=== PATIENT | female | born 1960 | race Caucasian/White ===

== ENCOUNTER → 2017-06-26 | Outpatient (CLI) | payer OTHER ==
[~2017-06-26] VITALS: Ht 152.4 cm; Wt 86.2 kg
[~2017-06-26] MED LIST: ACIDOPHILUS1 EAC3 PO; CARAFATE1 G PO; CYCLOBENZAPRINE10 MG PO; DICLOFENAC SODI75 MG PO; ENALAPRIL MALEA20 MG PO; ESTR0.624 PO; FIORICET 50-301 EACH PO; FIORICET 50-321 EACH PO; HYDROCHLOROTH12.5 M1 PO; HYZAAR 100-251 EACH PO; HYZAAR 100-251 UDTAB PO; LOSARTAN-HCTZ1 EACH; LOSARTAN-HCTZ1 EACH PO; LOTRISONE CREAM45 GM TOP; LOTRISONE CREAM45 GM TP; NO TOMA MEDICAMENTO; NORTUSS-EX LIQ118 ML PO; OMEPRAZOLE20 MG PO; PREMARIN0.45 MG; PROPRANOLOL HCL60 M1 PO; PROVENTIL HFA6.7 GM IH; TESSALON PERLE100 M1 PO; VOLTAREM 50 MG PO; ZANTAC150 MG PO; ZANTAC300 MG PO; ZITHROMAX TRI-500 MG PO; [UNRECOGNIZED DRUG - OTHER] PO
== END | disposition home or self-care (01) ==
LOC: PPHC 11:00
DX: L29.8 Other pruritus (principal)

== ENCOUNTER 2017-07-21 13:01 | Emergency (ER) | payer OTHER ==
[~2017-07-21] VITALS: Ht 152.4 cm; Wt 86.2 kg
== END 2017-07-21 16:27 | disposition home or self-care (01) ==
LOC: ER 13:01
DX: B34.9 Viral infection, unspecified (principal)

== ENCOUNTER 2017-07-26 12:09 | Emergency (ER) | payer OTHER ==
[~2017-07-26] VITALS: Ht 152.4 cm; Wt 90.7 kg
== END 2017-07-26 15:42 | disposition home or self-care (01) ==
LOC: ER 12:09
DX: J45.998 Other asthma (principal)

== ENCOUNTER → 2017-08-13 | Outpatient (CLI) | payer OTHER ==
[~2017-08-13] MED LIST changes: +BUTALB-ACETAMI1 EACH; +ULTRAM50 MG
== END | disposition home or self-care (01) ==
LOC: PPHC 15:42
DX: G43.809 Other migraine, not intractable, without status migrainosus (principal); Z76.0 Encounter for issue of repeat prescription

== ENCOUNTER → 2017-09-16 | Outpatient (CLI) | payer OTHER | END | disposition home or self-care (01) | LOC: PPHC 15:44 | DX: M54.5 Low back pain (principal) ==

== ENCOUNTER 2017-11-26 16:17 | Emergency (ER) | payer OTHER ==
[~2017-11-26] VITALS: Ht 152.4 cm; Wt 90.7 kg
[2017-11-27] MEDS ORDERED: XOPENEX0.63 MG/3 IH (09:42)
[2017-11-27] MEDS ORDERED: LEVAQUIN500 MG PO (09:42)
[2017-11-27] MEDS ORDERED: TUSSI PRES-B L120 M1 PO (09:42)
== END 2017-11-27 10:15 | disposition home or self-care (01) ==
LOC: ER 16:17
DX: J11.1 Influenza due to unidentified influenza virus with other respiratory manifestations (principal)

== ENCOUNTER 2018-01-06 15:50 | Outpatient (CLI) | payer OTHER ==
[~2018-01-06 15:50] MED LIST changes: +LEVAQUIN500 MG PO; +TUSSI PRES-B L120 M1 PO; +XOPENEX0.63 MG/3 IH
== END 2018-01-06 15:51 | disposition home or self-care (01) ==
LOC: LAB 15:50
DX: R04.0 Epistaxis (principal)

== ENCOUNTER 2018-01-13 17:39 | Outpatient (CLI) | payer OTHER | END 2018-01-13 17:41 | disposition home or self-care (01) | LOC: RAD 17:39 | DX: R10.84 Generalized abdominal pain (principal); M54.5 Low back pain ==

== ENCOUNTER 2018-01-14 06:08 | Outpatient (CLI) | payer OTHER | END 2018-01-14 06:17 | disposition home or self-care (01) | LOC: LAB 06:08 | DX: R10.84 Generalized abdominal pain (principal); N39.0 Urinary tract infection, site not specified ==

== ENCOUNTER 2018-01-14 10:43 | Emergency (ER) | payer OTHER ==
[~2018-01-14] VITALS: Ht 152.4 cm; Wt 92.5 kg
== END 2018-01-14 14:17 | disposition home or self-care (01) ==
LOC: ER 10:43
DX: R10.31 Right lower quadrant pain (principal)

== ENCOUNTER 2018-08-13 06:57 | Outpatient (CLI) | payer OTHER | END 2018-08-13 07:50 | disposition home or self-care (01) | LOC: LAB 06:57 | DX: E78.4 Other hyperlipidemia (principal); I10 Essential (primary) hypertension; Z00.00 Encounter for general adult medical examination without abnormal findings ==

== ENCOUNTER 2018-09-03 10:15 | Outpatient (CLI) | payer OTHER | END 2018-09-03 10:17 | disposition home or self-care (01) | LOC: MAMO-SONO 10:15 | DX: N64.4 Mastodynia (principal); Z12.31 Encounter for screening mammogram for malignant neoplasm of breast ==

== ENCOUNTER 2018-09-11 06:35 | Outpatient (CLI) | payer OTHER | END 2018-09-11 18:34 | disposition home or self-care (01) | LOC: LAB 06:35 | DX: K92.1 Melena (principal); R10.13 Epigastric pain; K64.2 Third degree hemorrhoids; R19.4 Change in bowel habit; R10.31 Right lower quadrant pain ==

== ENCOUNTER 2018-09-17 10:52 | Outpatient (CLI) | payer OTHER | END 2018-09-17 11:07 | disposition home or self-care (01) | LOC: SONOGRAMA 10:52 | DX: Z12.31 Encounter for screening mammogram for malignant neoplasm of breast (principal) ==

== ENCOUNTER 2018-09-23 06:18 | Emergency (ER) | payer OTHER ==
[~2018-09-23] VITALS: Ht 152.4 cm; Wt 90.7 kg
[2018-09-23] MEDS ORDERED: PREMARIN0.45 MG (06:40)
[2018-09-23] MEDS ORDERED: PRILOSEC10 MG (06:41)
== END 2018-09-23 11:40 | disposition home or self-care (01) ==
LOC: ER 06:18
DX: S60.222A Contusion of left hand, initial encounter (principal); W22.8XXA Striking against or struck by other objects, initial encounter; Y93.89 Activity, other specified; Y92.090 Kitchen in other non-institutional residence as the place of occurrence of the external cause; Y99.8 Other external cause status

== ENCOUNTER 2018-09-30 07:28 | Day surgery (SDC) | payer OTHER ==
[~2018-09-30 07:28] MED LIST changes: +PRILOSEC10 MG
== END 2018-09-30 09:25 | disposition home or self-care (01) ==
LOC: AMB-ENDOS 07:28
DX: D12.4 Benign neoplasm of descending colon (principal)

== ENCOUNTER 2018-10-03 12:40 | Emergency (ER) | payer OTHER ==
[~2018-10-03] VITALS: Ht 152.4 cm; Wt 90.7 kg
== END 2018-10-03 14:17 | disposition home or self-care (01) ==
LOC: ER 12:40
DX: M72.2 Plantar fascial fibromatosis (principal); M79.672 Pain in left foot

== ENCOUNTER 2018-10-06 06:22 | Emergency (ER) | payer OTHER ==
[~2018-10-06] VITALS: Ht 152.4 cm; Wt 90.7 kg
== END 2018-10-06 08:41 | disposition home or self-care (01) ==
LOC: ER 06:22
DX: M72.2 Plantar fascial fibromatosis (principal)

== ENCOUNTER 2018-10-10 08:45 | Emergency (ER) | payer OTHER ==
[~2018-10-10] VITALS: Ht 152.4 cm; Wt 90.7 kg
[2018-10-10] MEDS ORDERED: KETO10TA2 PO (09:42)
== END 2018-10-10 09:52 | disposition home or self-care (01) ==
LOC: ER 08:45
DX: S80.02XA Contusion of left knee, initial encounter (principal); W18.39XA Other fall on same level, initial encounter; Y93.89 Activity, other specified; Y92.69 Other specified industrial and construction area as the place of occurrence of the external cause; Y99.8 Other external cause status

== ENCOUNTER 2019-01-23 12:39 | Outpatient (CLI) | payer OTHER ==
[~2019-01-23 12:39] MED LIST changes: +KETO10TA2 PO
== END 2019-01-23 12:46 | disposition home or self-care (01) ==
LOC: LAB 12:39
DX: J11.1 Influenza due to unidentified influenza virus with other respiratory manifestations (principal); J11.81 Influenza due to unidentified influenza virus with encephalopathy

== ENCOUNTER 2019-02-19 07:13 | Outpatient (CLI) | payer OTHER | END 2019-02-19 07:18 | disposition home or self-care (01) | LOC: LAB 07:13 | DX: G63 Polyneuropathy in diseases classified elsewhere (principal); I73.89 Other specified peripheral vascular diseases; I87.2 Venous insufficiency (chronic) (peripheral); M54.5 Low back pain ==

== ENCOUNTER 2019-02-19 07:48 | Outpatient (CLI) | payer OTHER | END 2019-02-19 07:53 | disposition home or self-care (01) | LOC: RAD 07:48 | DX: M54.5 Low back pain (principal) ==

== ENCOUNTER 2019-05-25 16:54 | Outpatient (CLI) | payer OTHER | END 2019-05-25 17:43 | disposition home or self-care (01) | LOC: RAD 16:54 | DX: M62.830 Muscle spasm of back (principal) ==

== ENCOUNTER 2019-07-20 16:25 | Outpatient (CLI) | payer OTHER | END 2019-07-20 19:10 | disposition home or self-care (01) | LOC: LAB 16:25 | DX: J11.1 Influenza due to unidentified influenza virus with other respiratory manifestations (principal); R05 Cough ==

== ENCOUNTER 2019-12-22 06:53 | Emergency (ER) | payer OTHER ==
[~2019-12-22] VITALS: Ht 152.4 cm; Wt 90.7 kg
== END 2019-12-22 12:57 | disposition home or self-care (01) ==
LOC: ER 06:53
DX: M54.41 Lumbago with sciatica, right side (principal); R10.31 Right lower quadrant pain

== ENCOUNTER 2020-02-03 10:07 | Outpatient (CLI) | payer OTHER | END 2020-02-03 17:32 | disposition home or self-care (01) | LOC: MRI 10:07 | PROVIDERS: ATTEND General Practice | DX: M54.5 Low back pain (principal) | CPT/HCPCS: 72148 ==

== ENCOUNTER 2020-04-27 11:01 | Emergency (ER) | payer OTHER ==
[~2020-04-27] VITALS: Ht 152.4 cm; Wt 92.1 kg
[2020-04-27] MEDS ORDERED: ESTR0.624 PO (11:19)
[2020-04-27] MEDS ORDERED: ATACAND4 MG PO (11:19)
[2020-04-27] MEDS ORDERED: INDERAL LA80 MG PO (11:20)
[2020-04-27] MEDS ORDERED: COZAAR25 MG PO (11:21)
[2020-04-27] MEDS ORDERED: MECLIZINE HCL25 MG PO (14:43)
== END 2020-04-27 14:53 | disposition home or self-care (01) ==
LOC: ER 11:01
DX: R42 Dizziness and giddiness (principal); Z03.818 Encounter for observation for suspected exposure to other biological agents ruled out

== ENCOUNTER 2020-06-21 06:49 | Outpatient (CLI) | payer OTHER ==
[~2020-06-21 06:49] MED LIST changes: +ATACAND4 MG PO; +COZAAR25 MG PO; +INDERAL LA80 MG PO; +MECLIZINE HCL25 MG PO
== END 2020-06-21 06:56 | disposition home or self-care (01) ==
LOC: LAB 06:49
PROVIDERS: ATTEND General Practice
DX: R05 Cough (principal); J11.1 Influenza due to unidentified influenza virus with other respiratory manifestations

== ENCOUNTER 2020-06-27 10:29 | Emergency (ER) | payer OTHER ==
[~2020-06-27] VITALS: Ht 152.4 cm; Wt 90.7 kg
[2020-06-27] MEDS ORDERED: PROAIR HFA8.5 GM IH (10:39)
[2020-06-27] MEDS ORDERED: BUDESONIDE0.5 MG/21 IH (16:32)
[2020-06-27] MEDS ORDERED: COMBIVENT RESPIM4 GM IH (16:32)
[2020-06-27] MEDS ORDERED: MEDROLPACK PO (16:32)
[2020-06-27] MEDS ORDERED: TESSALON PERLE100 M1 PO (16:32)
== END 2020-06-27 17:56 | disposition home or self-care (01) ==
LOC: ER 10:29
DX: J45.998 Other asthma (principal); Z03.818 Encounter for observation for suspected exposure to other biological agents ruled out

== ENCOUNTER 2020-07-18 07:10 | Outpatient (CLI) | payer OTHER ==
[~2020-07-18 07:10] MED LIST changes: +BUDESONIDE0.5 MG/21 IH; +COMBIVENT RESPIM4 GM IH; +MEDROLPACK PO; +PROAIR HFA8.5 GM IH
== END 2020-07-18 07:23 | disposition home or self-care (01) ==
LOC: MAMO-SONO 07:10
PROVIDERS: ATTEND Surgery
DX: N60.11 Diffuse cystic mastopathy of right breast (principal); N60.12 Diffuse cystic mastopathy of left breast; Z12.31 Encounter for screening mammogram for malignant neoplasm of breast; N64.59 Other signs and symptoms in breast

== ENCOUNTER 2020-11-11 16:11 | Emergency (ER) | payer OTHER ==
[~2020-11-11] VITALS: Ht 152.4 cm; Wt 90.7 kg
[2020-11-11] MEDS ORDERED: NEURONTIN300 MG (16:31)
[2020-11-11] MEDS ORDERED: MEDROLPACK PO (19:41)
[2020-11-11] MEDS ORDERED: KETO10TA2 PO (19:41)
== END 2020-11-11 19:59 | disposition home or self-care (01) ==
LOC: ER 16:11
DX: S70.02XA Contusion of left hip, initial encounter (principal); W18.09XA Striking against other object with subsequent fall, initial encounter; Y93.89 Activity, other specified; Y92.89 Other specified places as the place of occurrence of the external cause; Y99.8 Other external cause status

== ENCOUNTER → 2021-01-02 | Emergency (ER) | payer OTHER ==
[~2021-01-02] VITALS: Ht 152.4 cm; Wt 90.7 kg
[~2021-01-02] MED LIST changes: +BENADRYL25 MG PO; +NEURONTIN300 MG; +SUMATRIPTAN-NA1 EACH PO
== END | disposition home or self-care (01) ==
LOC: ER 13:35
DX: G43.909 Migraine, unspecified, not intractable, without status migrainosus (principal)

== ENCOUNTER → 2021-01-05 | Outpatient (CLI) | payer OTHER | END | disposition home or self-care (01) | LOC: LAB 09:49 | PROVIDERS: ATTEND Emergency Medicine Pediatric Emergency Medicine | DX: Z03.818 Encounter for observation for suspected exposure to other biological agents ruled out (principal) ==

== ENCOUNTER 2021-01-16 08:00 | Outpatient (CLI) | payer OTHER | END 2021-01-16 08:30 | disposition home or self-care (01) | LOC: PPH VACUNA 08:00 | DX: Z23 Encounter for immunization (principal) ==

== ENCOUNTER → 2021-02-06 08:00 | Outpatient (CLI) | payer OTHER | END | disposition home or self-care (01) | LOC: PPH VACUNA 08:00 | DX: Z23 Encounter for immunization (principal) ==

== ENCOUNTER 2021-04-21 08:00 | Outpatient (CLI) | payer OTHER | END 2021-04-21 08:30 | disposition home or self-care (01) | LOC: PPH VACUNA 08:00 | PROVIDERS: ATTEND Emergency Medicine Pediatric Emergency Medicine | DX: Z23 Encounter for immunization (principal) ==

== ENCOUNTER 2021-05-23 15:57 | Emergency (ER) | payer OTHER ==
[~2021-05-23] VITALS: Ht 152.4 cm; Wt 86.2 kg
== END 2021-05-23 18:41 | disposition home or self-care (01) ==
LOC: ER 15:57
DX: S70.01XA Contusion of right hip, initial encounter (principal); G89.11 Acute pain due to trauma; M25.512 Pain in left shoulder; M25.511 Pain in right shoulder; W18.09XA Striking against other object with subsequent fall, initial encounter; Y93.89 Activity, other specified; Y92.89 Other specified places as the place of occurrence of the external cause; Y99.8 Other external cause status

== ENCOUNTER → 2021-05-31 | Outpatient (CLI) | payer OTHER | END | disposition home or self-care (01) | LOC: RAD 09:07 | PROVIDERS: ATTEND Orthopaedic Surgery Sports Medicine | DX: M25.522 Pain in left elbow (principal) ==

== ENCOUNTER 2021-06-05 10:07 | Outpatient (CLI) | payer OTHER | END 2021-06-05 10:11 | disposition home or self-care (01) | LOC: MRI 10:07 | PROVIDERS: ATTEND Orthopaedic Surgery Sports Medicine | DX: M75.122 Complete rotator cuff tear or rupture of left shoulder, not specified as traumatic (principal) | CPT/HCPCS: 73221 ==

== ENCOUNTER 2021-06-26 09:02 | Outpatient (CLI) | payer OTHER | END 2021-06-26 09:03 | disposition home or self-care (01) | LOC: RAD 09:02 | PROVIDERS: ATTEND Orthopaedic Surgery Sports Medicine | DX: M25.512 Pain in left shoulder (principal) ==

== ENCOUNTER 2021-07-25 08:00 | Outpatient (CLI) | payer OTHER | END 2021-07-25 08:30 | disposition home or self-care (01) | LOC: PPH VACUNA 08:00 | PROVIDERS: ATTEND Emergency Medicine Pediatric Emergency Medicine | DX: Z23 Encounter for immunization (principal) ==

== ENCOUNTER 2021-09-28 15:23 | Outpatient (CLI) | payer OTHER | END 2021-09-28 15:28 | disposition home or self-care (01) | LOC: LAB 15:23 | DX: U07.1 COVID-19 (principal) ==

== ENCOUNTER → 2022-01-16 06:30 | Outpatient (CLI) | payer OTHER | END | disposition home or self-care (01) | LOC: LAB 06:30 | PROVIDERS: ATTEND Anesthesiology | DX: Z03.818 Encounter for observation for suspected exposure to other biological agents ruled out (principal) ==

== ENCOUNTER → 2022-01-29 | Emergency (ER) | payer OTHER ==
[~2022-01-29] VITALS: Ht 152.4 cm; Wt 90.7 kg
== END | disposition home or self-care (01) ==
LOC: ER 10:41
DX: S79.912A Unspecified injury of left hip, initial encounter (principal); W18.30XA Fall on same level, unspecified, initial encounter; Y93.9 Activity, unspecified; Y92.234 Operating room of hospital as the place of occurrence of the external cause; Z88.0 Allergy status to penicillin; Z91.013 Allergy to seafood; S89.92XA Unspecified injury of left lower leg, initial encounter; J45.909 Unspecified asthma, uncomplicated; I10 Essential (primary) hypertension

== ENCOUNTER 2022-02-13 08:00 | Outpatient (CLI) | payer OTHER | END 2022-02-13 08:05 | disposition home or self-care (01) | LOC: PPH VACUNA 08:00 | PROVIDERS: ATTEND Emergency Medicine Pediatric Emergency Medicine | DX: Z23 Encounter for immunization (principal) ==

== ENCOUNTER → 2022-08-17 | Emergency (ER) | payer OTHER ==
[~2022-08-17] VITALS: Ht 152.4 cm; Wt 90.7 kg
== END | disposition home or self-care (01) ==
LOC: ER 06:29
DX: G43.109 Migraine with aura, not intractable, without status migrainosus (principal); Z88.0 Allergy status to penicillin; Z91.013 Allergy to seafood

== ENCOUNTER 2022-11-05 11:37 | Emergency (ER) | payer OTHER ==
[~2022-11-05] VITALS: Ht 152.4 cm; Wt 90.7 kg
== END 2022-11-05 13:21 | disposition home or self-care (01) ==
LOC: ER 11:37
DX: M25.562 Pain in left knee (principal)

== ENCOUNTER 2023-01-25 06:31 | Emergency (ER) | payer OTHER ==
[~2023-01-25] VITALS: Ht 152.4 cm; Wt 91.6 kg
== END 2023-01-25 11:19 | disposition home or self-care (01) ==
LOC: ER 06:31
DX: M54.59 Other low back pain (principal)

== ENCOUNTER 2023-05-21 16:00 | Emergency (ER) | payer OTHER ==
[~2023-05-21] VITALS: Ht 152.4 cm; Wt 89.4 kg
[2023-05-21 17:17] LABS: HEMATOCRIT 37.9 % (36.0-45.00); HEMOGLOBIN 12.4 g/dL (12.0-15.00); MEAN CELL VOLUME 80.2 fL (80.00-100.00); MEAN CORPUSCULAR HEMOGLOBIN 26.3 pg (27.00-32.0); MEAN CORPUSCULAR HGB CONC 32.8 g/dl (32.0-36.0); PLATELET COUNT 223 K/uL (150-450); RED BLOOD COUNT 4.72 M/uL (4.00-6.00); RED CELL DISTRIBUTION WIDTH 15.6 % (11.5-14.5)
[2023-05-21 17:48] LABS: ALBUMIN 3.4 gm/dL (3.4-5.0); BILIRUBIN TOTAL 0.97 mg/dL (0.3-1.2); CALCIUM 8.7 mg/dL (8.5-10.1); CREATININE SERUM 0.71 mg/dL (0.55-1.02); GFR 83.69; GLOBULINA 4.1 G/DL (2.4-3.5); POTASSIUM 4.11 mEq/L (3.5-5.1); TOTAL PROTEIN 7.5 gm/dL (6.4-8.2)
[2023-05-21 18:00] LABS: PH,URINE 5.5 (5.0-8.0); URINE APPEARANCE Clear; URINE BILIRRUBIN Negative (NEGATIVE); URINE BLOOD Negative; URINE COLOR Yellow; URINE GLUCOSE Negative (NEGATIVE); URINE LEUKOCYTE Negative; URINE NITRATE Negative; URINE PROTEIN Negative (NEGATIVE); URINE UROBILINOGEN 0.2 E.U./dl
[2023-05-21 18:03] LABS: URINE BACTERIA 264.5 uL (0.0-1933); URINE EPITHELIAL CELLS 6.9 uL (0.0-38.8); URINE RBC 2.4 uL (0.0-20.8)
[2023-05-21 18:06] LABS: URINE WBC 1.3 uL (0.0-23.2)
== END 2023-05-21 20:45 | disposition home or self-care (01) ==
LOC: ER 16:01
PROVIDERS: General Practice
DX: K52.9 Noninfective gastroenteritis and colitis, unspecified (principal); I10 Essential (primary) hypertension; Z88.0 Allergy status to penicillin; Z91.013 Allergy to seafood

== ENCOUNTER 2023-08-28 12:20 | Outpatient (CLI) | payer OTHER | END 2023-08-28 13:28 | disposition home or self-care (01) | LOC: RAD 12:20 | PROVIDERS: ATTEND Preventive Medicine Occupational Medicine | DX: M17.0 Bilateral primary osteoarthritis of knee (principal) ==

== ENCOUNTER 2023-09-04 10:40 | Outpatient (CLI) | payer OTHER | END 2023-09-04 10:50 | disposition home or self-care (01) | LOC: PPH VACUNA 10:40 | PROVIDERS: ATTEND Emergency Medicine Pediatric Emergency Medicine | DX: Z23 Encounter for immunization (principal) | CPT/HCPCS: 90653; G0008 ==

== ENCOUNTER 2023-12-03 15:21 | Emergency (ER) | payer OTHER ==
[~2023-12-03] VITALS: Ht 152.4 cm; Wt 85.7 kg
[2023-12-03] MEDS ORDERED: SODIUM CHLORIDE 0.9% IV STA (17:59)
[2023-12-03] MEDS ORDERED: METHYLPREDNISOLONE SOD SUCC IV STA (17:59)
[2023-12-03] MEDS ORDERED: ALBUTEROL SULFATE 3 ML/2.5 MG AMPUL.NEB IH STA (18:00)
[2023-12-03] MEDS ORDERED: IPRATROPIUM BROMIDE 0.5 MG/2.5 ML AMPUL.NEB IH STA (18:00)
[2023-12-03] MEDS ORDERED: GUAIFENESIN/DEXTROMETHORPHAN 10ML BLIST.PACK PO STA (18:01)
[2023-12-03] MEDS ORDERED: GUAIFENESIN 200 MG/10 ML BLIST.PACK PO ONE (18:05)
[2023-12-03] MEDS ORDERED: METHYLPREDNISOLONE SOD SUCC 125 MG VIAL IV STA (18:07)
[2023-12-03] MEDS ORDERED: METHYLPREDNISOLONE SOD SUCC 125 MG VIAL ONE (18:09)
[2023-12-03 19:03] LABS: HEMATOCRIT 32.6 % (36.0-45.00); HEMOGLOBIN 10.5 g/dL (12.0-15.00); MEAN CELL VOLUME 76.8 fL (80.00-100.00); MEAN CORPUSCULAR HEMOGLOBIN 24.6 pg (27.00-32.0); MEAN CORPUSCULAR HGB CONC 32.1 g/dl (32.0-36.0); PLATELET COUNT 270 K/uL (150-450); RED BLOOD COUNT 4.24 M/uL (4.00-6.00); RED CELL DISTRIBUTION WIDTH 17.2 % (11.5-14.5)
[2023-12-03] MEDS ORDERED: ALBUTEROL SULFATE 3 ML/2.5 MG AMPUL.NEB IH ONE (19:56)
[2023-12-03] MEDS ORDERED: IPRATROPIUM BROMIDE 0.5 MG/2.5 ML AMPUL.NEB IH ONE (19:56)
[2023-12-03] MEDS ORDERED: SINGULAIR10 MG PO (20:17)
[2023-12-03] MEDS ORDERED: ZYRTEC10 MG PO (20:17)
[2023-12-03] MEDS ORDERED: BENZONATATE200 M1 PO (20:17)
[2023-12-03] MEDS ORDERED: PREDNISONE 5MG PO (20:17)
[2023-12-03] MEDS ORDERED: ALBUTEROL1.25 MG/3 IH (20:17)
[2023-12-03] MEDS ORDERED: IPRATROPIU0.2 MG/1 M IH (20:17)
== END 2023-12-03 20:48 | disposition home or self-care (01) ==
LOC: ER 15:22
PROVIDERS: Emergency Medicine
DX: R53.81 Other malaise (principal); J06.9 Acute upper respiratory infection, unspecified; Z20.822 Contact with and (suspected) exposure to COVID-19; I10 Essential (primary) hypertension; Z88.0 Allergy status to penicillin; Z91.013 Allergy to seafood

== ENCOUNTER 2023-12-06 10:13 | Emergency (ER) | payer OTHER ==
[~2023-12-06] VITALS: Ht 157.5 cm; Wt 113.4 kg
[~2023-12-06 10:13] MED LIST changes: +ALBUTEROL1.25 MG/3 IH; +BENZONATATE200 M1 PO; +IPRATROPIU0.2 MG/1 M IH; +PREDNISONE 5MG PO; +SINGULAIR10 MG PO; +ZYRTEC10 MG PO
[2023-12-06] MEDS ORDERED: BENZONATATE 100 MG CAPSULE PO ONE (11:00)
[2023-12-06] MEDS ORDERED: METHYLPREDNISOLONE SOD SUCC 40 MG VIAL IM ONE (11:00)
[2023-12-06] MEDS ORDERED: LEVALBUTEROL HCL 0.63 MG/3 ML SOLUTION IH ONE ×2 (11:00→12:25)
[2023-12-06] MEDS ORDERED: METHYLPREDNISOLONE SOD SUCC 40 MG VIAL ONE (11:23)
[2023-12-06 12:36] LABS: HEMATOCRIT 32.1 % (36.0-45.00); HEMOGLOBIN 10.6 g/dL (12.0-15.00); MEAN CELL VOLUME 76.8 fL (80.00-100.00); MEAN CORPUSCULAR HEMOGLOBIN 25.4 pg (27.00-32.0); MEAN CORPUSCULAR HGB CONC 33.1 g/dl (32.0-36.0); PLATELET COUNT 285 K/uL (150-450); RED BLOOD COUNT 4.18 M/uL (4.00-6.00); RED CELL DISTRIBUTION WIDTH 17.2 % (11.5-14.5)
[2023-12-06 12:39] LABS: PH,URINE 6.5 (5.0-8.0); URINE APPEARANCE Clear; URINE BILIRRUBIN Negative (NEGATIVE); URINE BLOOD Negative; URINE COLOR Yellow; URINE GLUCOSE Negative (NEGATIVE); URINE LEUKOCYTE Negative; URINE NITRATE Negative; URINE PROTEIN Negative (NEGATIVE); URINE UROBILINOGEN 0.2 E.U./dl
[2023-12-06 12:43] LABS: URINE BACTERIA 134.8 uL (0.0-1933); URINE EPITHELIAL CELLS 3.7 uL (0.0-38.8); URINE RBC 2.8 uL (0.0-20.8)
== END 2023-12-06 13:28 | disposition home or self-care (01) ==
LOC: ER 10:14
PROVIDERS: General Practice
DX: J00 Acute nasopharyngitis [common cold] (principal); I10 Essential (primary) hypertension; Z87.09 Personal history of other diseases of the respiratory system; Z88.0 Allergy status to penicillin; Z91.013 Allergy to seafood; Z20.822 Contact with and (suspected) exposure to COVID-19

== ENCOUNTER 2024-02-26 06:40 | Outpatient (CLI) | payer OTHER | END 2024-02-26 06:44 | disposition home or self-care (01) | LOC: LAB 06:40 | PROVIDERS: ATTEND Preventive Medicine Occupational Medicine | DX: B19.10 Unspecified viral hepatitis B without hepatic coma (principal) ==

== ENCOUNTER → 2024-03-31 14:20 | Outpatient (CLI) | payer OTHER ==
[~2024-03-31 14:20] MED LIST changes: +ACETAMINOPHEN500 M2 PO
== END | disposition home or self-care (01) ==
LOC: LAB 14:20
PROVIDERS: ATTEND Preventive Medicine Occupational Medicine
DX: J11.1 Influenza due to unidentified influenza virus with other respiratory manifestations (principal); Z20.828 Contact with and (suspected) exposure to other viral communicable diseases

== ENCOUNTER 2024-04-02 12:12 | Emergency (ER) | payer OTHER ==
[~2024-04-02] VITALS: Ht 152.4 cm; Wt 83.5 kg
[~2024-04-02 12:12] MED LIST changes: -ACETAMINOPHEN500 M2 PO
[2024-04-02] MEDS ORDERED: METOCLOPRAMIDE HCL 5 MG/ML VIAL IV STA (14:54)
[2024-04-02] MEDS ORDERED: SUMATRIPTAN SUCCINATE 6 MG/0.5 ML VIAL SUBCUTANEO STA (14:55)
[2024-04-02] MEDS ORDERED: KETOROLAC TROMETHAMINE 30 MG VIAL IV STA (14:56)
[2024-04-02] MEDS ORDERED: DEXTROSE 10 % IN WATER 500 ML IV STA (14:59)
[2024-04-02] MEDS ORDERED: ACETAMINOPHEN500 M2 PO (17:56)
[2024-04-02 18:46] VITALS: BP 108/73; O2SAT 96
== END 2024-04-02 18:47 | disposition home or self-care (01) ==
LOC: ER 12:12
DX: G43.001 Migraine without aura, not intractable, with status migrainosus (principal); Z88.0 Allergy status to penicillin; Z91.013 Allergy to seafood

== ENCOUNTER 2024-07-01 06:53 | Outpatient (CLI) | payer OTHER ==
[~2024-07-01 06:53] MED LIST changes: +ACETAMINOPHEN500 M2 PO
[2024-07-02 10:05] LABS: HEPATITIS A ANTIBODY IGG Negative (Negative); HEPATITIS B SURFACE ANTIBODY Reactive (.); HEPATITIS C VIRUS ANTIBODY Non Reactive (Non Reactive)
== END 2024-07-01 08:01 | disposition home or self-care (01) ==
LOC: LAB 06:53
DX: A64 Unspecified sexually transmitted disease (principal); B19.9 Unspecified viral hepatitis without hepatic coma

== ENCOUNTER 2024-10-03 11:10 | Emergency (ER) | payer OTHER ==
[~2024-10-03] VITALS: Ht 152.4 cm; Wt 83.9 kg
[2024-10-03] MEDS ORDERED: KETOROLAC TROMETHAMINE 60 MG VIAL IM STA (12:35)
[2024-10-03] MEDS ORDERED: KETOROLAC TROMETHAMINE 60 MG VIAL IM ONE (12:36)
== END 2024-10-03 16:20 | disposition home or self-care (01) ==
LOC: ER 11:10
DX: R51.9 Headache, unspecified (principal); J45.909 Unspecified asthma, uncomplicated; I10 Essential (primary) hypertension; J32.9 Chronic sinusitis, unspecified; Z88.0 Allergy status to penicillin; Z91.018 Allergy to other foods; Z91.013 Allergy to seafood; Z86.79 Personal history of other diseases of the circulatory system

== ENCOUNTER → 2024-10-06 11:37 | Outpatient (CLI) | payer OTHER ==
[2024-10-06 12:37] LABS: HEMATOCRIT 32.6 % (36.0-45.00); HEMOGLOBIN 10.4 g/dL (12.0-15.00); MEAN CORPUSCULAR HEMOGLOBIN 23.5 pg (27.00-32.0); MEAN CORPUSCULAR HGB CONC 31.8 g/dl (32.0-36.0); PLATELET COUNT 255 K/uL (150-450)
[2024-10-06 12:48] LABS: INR 0.96; PARTIAL THROMBOPLASTIN TIME 24.7 SECONDS (22.0-34.0); PROTHROMBIN TIME 10.5 SECONDS (9.0-11.5)
[2024-10-06 13:27] LABS: ALBUMIN 3.6 gm/dL (3.4-5.0); BILIRUBIN TOTAL 0.42 mg/dL (0.3-1.2); CALCIUM 9.5 mg/dL (8.5-10.1); CREATININE SERUM 0.77 mg/dL (0.55-1.02); GFR 75.96; POTASSIUM 4.36 mEq/L (3.5-5.1); TOTAL PROTEIN 7.6 gm/dL (6.4-8.2)
== END | disposition home or self-care (01) ==
LOC: LAB 11:37
PROVIDERS: ATTEND Ophthalmology
DX: D68.8 Other specified coagulation defects (principal)

== ENCOUNTER 2024-10-24 11:21 | Emergency (ER) | payer OTHER ==
[~2024-10-24] VITALS: Ht 152.4 cm; Wt 83.5 kg
[2024-10-24] MEDS ORDERED: ALPRAzolam 1 MG TABLET PO ONE (14:45)
[2024-10-24] MEDS ORDERED: hydrOXYzine PAMOATE 25 MG CAPSULE PO ONE (14:45)
== END 2024-10-24 18:13 | disposition home or self-care (01) ==
LOC: ER 11:44
DX: F32.A Depression, unspecified (principal); F41.9 Anxiety disorder, unspecified; R07.89 Other chest pain; I10 Essential (primary) hypertension; Z87.09 Personal history of other diseases of the respiratory system; Z91.010 Allergy to peanuts; Z88.0 Allergy status to penicillin; Z91.013 Allergy to seafood

== ENCOUNTER 2025-01-05 11:59 | Emergency (ER) | payer OTHER ==
[~2025-01-05] VITALS: Ht 152.4 cm; Wt 83.9 kg
[2025-01-05] MEDS ORDERED: TRAMADOL HCL 50 MG TABLET PO ONE (12:45)
[2025-01-05 13:10] LABS: BASO % 0.9 % (0.1-1.2); EOS # 0.22 (0.04-0.54); EOS % 3.9 % (0.7-7.0); LYMPH # 2.26 (1.18-3.74); LYMPH % 39.9 % (19.3-53.1); MEAN PLATELET VOLUME 9.30 fl (9.4-12.4); MONO # 0.41 (0.24-0.82); MONO % 7.2 % (4.7-12.5); NEUT # 2.70 (1.56-6.13); NEUT % 47.7 % (34.0-71.1); RED CELL DISTRIBUTION WIDTH 16.3 % (11.6-14.4)
[2025-01-05] MEDS ORDERED: SUMATRIPTAN SUCCINATE 6 MG/0.5 ML VIAL SUBCUTANEO ONE (13:30)
[2025-01-05 14:13] LABS: COVID-19 AG NEGATIVE (NEGATIVE)
[2025-01-05 14:25] LABS: ALT/SGPT 25.0 U/L (12-78); AST/SGOT 20.0 U/L (15-37); BILIRUBIN TOTAL 0.45 mg/dL (0.3-1.2); BUN CREA RATIO 29.0 (7.0-25.0); CREATININE SERUM 0.75 mg/dL (0.55-1.02); GFR 78.3; GLOBULINA 4.1 G/DL (2.4-3.5); GLUCOSE FASTING 87.0 mg/dL (65-100); OSMOLALITY SERUM 286.0 MOSM/KG (275-295)
[2025-01-05] MEDS ORDERED: BUTALB-ACETAMI1 EAC2 PO (14:42)
== END 2025-01-05 19:09 | disposition home or self-care (01) ==
LOC: ER 11:59
PROVIDERS: General Practice
DX: G43.809 Other migraine, not intractable, without status migrainosus (principal); R26.89 Other abnormalities of gait and mobility; Z88.0 Allergy status to penicillin; Z91.013 Allergy to seafood; Z91.018 Allergy to other foods; J45.909 Unspecified asthma, uncomplicated; Z20.822 Contact with and (suspected) exposure to COVID-19

== ENCOUNTER → 2025-03-26 | Emergency (ER) | payer OTHER ==
[~2025-03-26] VITALS: Ht 165.1 cm; Wt 83.9 kg
[~2025-03-26] MED LIST changes: +0.9 % SODIUM CHLORIDE 1,000 ML IV ONE; +ALBUTEROL SULFATE 3 ML/2.5 MG AMPUL.NEB IH ONE; +ALBUTEROL SULFATE 3 ML/2.5 MG AMPUL.NEB IH SCH; +BENZONATATE 200 MG CAPSULE PO ONE; +BUTALB-ACETAMI1 EAC2 PO; +IPRATROPIUM BROMIDE 0.5 MG/2.5 ML AMPUL.NEB IH ONE; +IPRATROPIUM BROMIDE 0.5 MG/2.5 ML AMPUL.NEB IH SCH; +METHYLPREDNISOLONE ACETATE 40 MG/ML VIAL IU ONE
[2025-03-26 11:39] LABS: BASO % 0.8 % (0.1-1.2); EOS # 0.27 (0.04-0.54); EOS % 4.2 % (0.7-7.0); LYMPH # 2.26 (1.18-3.74); LYMPH % 35.4 % (19.3-53.1); MEAN PLATELET VOLUME 9.50 fl (9.4-12.4); MONO # 0.49 (0.24-0.82); MONO % 7.7 % (4.7-12.5); NEUT # 3.29 (1.56-6.13); NEUT % 51.6 % (34.0-71.1); RED CELL DISTRIBUTION WIDTH 16.3 % (11.6-14.4)
[2025-03-26 12:09] LABS: BUN CREA RATIO 21.0 (7.0-25.0); CREATININE SERUM 0.92 mg/dL (0.55-1.02); GFR 61.65; GLUCOSE FASTING 104.0 mg/dL (65-100); OSMOLALITY SERUM 286.0 MOSM/KG (275-295)
[2025-03-26 12:39] LABS: COVID-19 AG NEGATIVE (NEGATIVE)
== END | disposition home or self-care (01) ==
LOC: ER 10:34
PROVIDERS: Emergency Medicine
DX: J45.901 Unspecified asthma with (acute) exacerbation (principal); Z20.822 Contact with and (suspected) exposure to COVID-19; Z91.010 Allergy to peanuts; Z88.0 Allergy status to penicillin; Z91.013 Allergy to seafood